=== PATIENT | male | born 1960 | race Caucasian/White ===

== ENCOUNTER 2024-12-25 11:00 | Emergency (ER) | payer OTHER ==
[2024-12-25] MEDS ORDERED: Methocarbamol 500 MG TAB ONE (11:19)
[2024-12-25] MEDS ORDERED: Ketorolac Tromethamine 60 MG/2 ML VIAL ONE (11:21)
[2024-12-25] MEDS ORDERED: methylPREDNISolone Sod Succ/PF 125 MG/2 ML VIAL ONE (11:31)
== END 2024-12-25 11:45 | disposition home or self-care (01) ==
LOC: BURERS 11:00
DX: M54.50 Low back pain, unspecified (principal); G89.29 Other chronic pain; I10 Essential (primary) hypertension; F17.210 Nicotine dependence, cigarettes, uncomplicated; Z79.899 Other long term (current) drug therapy
CPT/HCPCS: 96372; 99283; J1885; J2919